=== PATIENT | male | born 1955 | race Hispanic/Latino ===

== ENCOUNTER → 2021-05-28 06:57 | Outpatient (CLI) | payer OTHER, MEDICARE, SELFPAY ==
--- NOTE | 2021-05-28 | DI.US.S_ITS ---
PROCEDURE: US ABDOMEN COMPLETE INDICATIONS: CHRONIC VIRAL HEPATITIS C TECHNIQUE: Real-time scanning was performed of the abdominal and retroperitoneal organs, with image documentation. COMPARISON: None. FINDINGS: Technically difficult examination due to overlying bowel gas and limited scanning windows. Liver: Liver is decreased in size and demonstrates lobulated contour and coarse, heterogeneous echotexture, consistent with cirrhosis. The main portal vein is dilated measuring 14.3 mm in diameter, demonstrating possible hepatofugal flow. Gallbladder: There are a couple of mobile gallstones. Gallbladder wall is mildly thickened measuring 3.2 mm. No pericholecystic fluid collection or sonographic Mendoza sign. Biliary ducts: Intrahepatic bile ducts are non-dilated. Extrahepatic bile duct caliber measures 9.2 mm. Normal is 6-7 mm or less in diameter, or 10 mm or less post-cholecystectomy. Pancreas: Obscured by overlying bowel gas. Spleen: Spleen is enlarged measuring 15.7 cm in length. Kidneys: Kidneys are normal in size and echotexture. Right kidney measures 10.4 cm long; left kidney measures 12.1 cm long. A 6 mm hypodense nodule is seen in the parapelvic area, suspicious for a small parapelvic cyst. Trace right renal pelviectasis. No renal stone. No solid masses. Aorta: Visualized aorta is normal in caliber at less than 3 cm. Iliacs: Proximal common iliac arteries are normal in caliber at less than 2.5 cm. IVC: Intrahepatic inferior vena cava is patent. Miscellaneous: No free abdominal fluid. IMPRESSION: 1. Cirrhotic liver. The main portal vein is dilated and may have reversal of flow. The findings consistent with portal hypertension. 2. Splenomegaly likely secondary to portal hypertension. 3. Cholelithiasis. There is mild gallbladder wall thickening which could be secondary to chronic liver disease, but acute cholecystitis cannot be excluded. Recommend clinical correlation. If clinically indicated, HIDA scan may be helpful. 4. Prominent common bile duct measuring 9 mm. If there is clinical findings to suggest biliary obstruction, MRCP may be obtained for further evaluation. 5. A 6 mm hypodense nodule in the right parapelvic area, most likely a cyst. There is trace right renal pelviectasis. Dictated by: Vishnu Ruvalcaba M.D. on 05/28/2021 at 9:36 Approved by: Vishnu Ruvalcaba M.D. on 05/28/2021 at 9:48
== END ==
PROVIDERS: PCP Internal Medicine; Referring Provider Internal Medicine; Visit Provider Internal Medicine
DX: B18.2 Chronic viral hepatitis C (principal); K74.60 Unspecified cirrhosis of liver; R16.1 Splenomegaly, not elsewhere classified; K80.20 Calculus of gallbladder without cholecystitis without obstruction
CPT/HCPCS: 76700

== ENCOUNTER 2021-09-17 10:12 | Day surgery (SDC) | payer OTHER, MEDICARE, SELFPAY ==
[2021-09-17 10:28] VITALS: BP 134/82; PULSE 76; RESP 16; TEMP 36.8; O2SAT 99; BMI 25.2
[2021-09-17] MEDS: SODIUM CHLORIDE 0.9% 1,000 ML 84 ML IV (10:47)
[2021-09-17 10:56] LABS: COVID19 -Nasal RAPID Negative (Negative)
[2021-09-17 11:21] VITALS: BMI 25.2
--- NOTE | 2021-09-17 11:51 | PM.HP.1 ---
History of Present Illness History of Present Illness Date Patient Seen: 09/17/21 Time Patient Seen: 11:51 Chief complaint: DX COLONOSCOPY & EGD Narrative: I reviewed my note from July 08, 2021 patient is indicated for variceal screening and colon cancer screening in light of an unknown histology history of colon polyps from 16 years ago Patient History Medical History Balanitis xerotica obliterans Depression determined by examination Hepatitis C virus carrier state Family & Social History Social History: household members spouse Tobacco & Substance use: Smoking Status Never smoker alcohol intake former Substance Use Type does not use Meds Home Medications and Allergies Home Medications Medication Instructions Recorded Confirmed Type sofosbuvir 200 mg-velpatasvir 50 200 tab PO DAILY 09/17/21 09/17/21 History mg tablet (Epclusa) Allergies Allergy/AdvReac Type Severity Reaction Status Date / Time No Known Drug Allergies Allergy Verified 09/17/21 10:40 Review of Systems Review of Systems ROS: Yes All systems reviewed with the patient and are negative except as otherwise documented Exam Vital Signs (past 8 hours): - 09/17/21 10:28 Temperature 98.3 F Pulse Rate 76 Respiratory Rate 16 Blood Pressure 134/82 Pulse Oximetry 99 Oxygen Delivery Method Room Air Const General: cooperative and comfortable Orientation: alert HENMT Head: normocephalic Ears: external ears normal Nose: external nose normal Face and sinus: normal facial exam Mouth: oral mucosae normal Eyes General: appearance normal, both eyes and all related structures Neck Neck: normal visual inspection Chest Chest: normal inspection of the chest Resp Effort & Inspection: normal respiratory effort Auscultation: clear to auscultation bilaterally Cardio Rate: regular rate Rhythm: regular rhythm Heart Sounds: no murmurs GI Inspection: normal to inspection Palpation: soft and No tender Auscultation: normal bowel sounds Skin General: no rashes or lesions noted and No jaundice Neuro General: patient alert and moves all extremities Cognition: normal cognition Speech: speech normal Extrem General: no pedal edema Psych Appearance: grossly normal Objective Labs Labs: Laboratory Results - last 24 hr 09/17/21 10:34 SARS-CoV-2 (PCR) Negative Assessment & Plan Assessment & Plan narrative: Hep C cirrhosis indicated for variceal screening. Also indicated for colon cancer screening. EGD and colonoscopy are pursued today. Time Spent With Patient Critical Care time: I spent a total of [] minutes of critical care time on this patient's care today; this time is exclusive of procedural time.
--- NOTE | 2021-09-17 11:53 | PM.PREOP ---
Pre-operative Note COVID-19 COVID-19 status: Negative Result date/Date tested (Pos, Neg/Pending): 09/17/21 Interval Note History & Physical reviewed/Exam performed by Physician: Yes Changes to H&P: No ASA Class (for procedural sedation): II
--- NOTE | 2021-09-17 12:51 | P.OP.EGD&C_ITS ---
Operative Date/Time/Diagnoses Date of procedure: 09/17/21 Time of procedure: 12:51 Pre-op diagnosis: Cirrhosis indicated for variceal screening also indicated for colon cancer screening. Post-op diagnosis: same Procedure & Clinicians Study performed: EGD and colonoscopy Same procedure as scheduled: Yes Indications: Cirrhosis indicated for variceal screening also indicated for colon cancer screening. Surgeon: Brooks Gonzalez Procedure Notes SCOAP/Timeout: Done Procedure in detail: After the risks and benefits were explained, written and verbal informed consent was obtained. The patient was brought into the procedure room and placed into the left lateral decubitus position. Please see nurse certified physical therapist assistant sedation notes. The scope was introduced into the mouth through the bite block and advanced under direct visualization to the 2nd portion of the duodenum. The scope was slowly withdrawn carefully examining the mucosa for any defects or lesions. Retroflexed views were accomplished in the stomach. The stomach was decompressed, the scope was then removed from the patient who tolerated the procedure well. Patient was then turned around a digital rectal examination accomplished no significant pathology appreciated. The scope was introduced into the rectum and advanced to the cecum as identified by the appendiceal orifice and ileocecal valve. The scope was slowly withdrawn to carefully examine the mucosa for any defects or lesions. Retroflexed views were avoided in the rectum multiple direct views were made to through the dentate line for exclusion of pathology. The colon was decompressed scope removed the patient tolerated the procedure well. Bowel prep adequate Adult colonoscope Scope withdrawal time: 7 minutes Sedation minutes: 28 Specimen(s): none sent Complications: none Impression: 1. Duodenum: This was visually normal from the bulb through the 2nd portion. 2. Stomach: Patient had a diffuse portal hypertensive gastropathy. No mass lesions no ulcers no outlet obstruction. In the fundus extending up through the cardia was evidence of enlarged gastric varices. No stigmata of recent bleeding no high-risk features. 3. Esophagus: Patient had evidence of distal esophageal varices. These would be rated at grade 1 to grade 2. No stigmata of recent bleeding no high-risk features. If he 4. Colon: There was some mild diverticulosis in the left colon. He otherwise no significant mucosal abnormality was appreciated throughout. Endoscopic diagnosis 1. Medium sized esophageal varices without stigmata 2. 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 Portal hypertensive gastropathy 4. Sigmoid diverticulosis Post-procedure Recommendations: Colonscopy in 5 years Plan for aftercare: 1. Repeat colonoscopy 5 years considering the remote history of unknown histology colon polyps. 2. Non selective beta-jacinta therapy is initiated today. 3. Short-term GI clinic follow-up to review response. 4. Repeat EGD 1 year. Disposition: PACU
[2021-09-17 12:53] VITALS: BP 111/65; PULSE 76; RESP 18; TEMP 36.4; O2SAT 99
[2021-09-17 13:00] VITALS: BP 99/64; PULSE 78; RESP 13; O2SAT 98
[2021-09-17 13:05] VITALS: BP 109/71; PULSE 70; RESP 11; O2SAT 100
[2021-09-17 13:15] VITALS: BP 131/77; PULSE 62; RESP 12; TEMP 36.4; O2SAT 100
[2021-09-17 13:33] VITALS: BP 129/64; PULSE 62; RESP 16; TEMP 36.3; O2SAT 99
== END 2021-09-17 13:54 | disposition home or self-care (01) ==
PROVIDERS: PCP Internal Medicine; Referring Provider Internal Medicine Gastroenterology; Visit Provider Internal Medicine Gastroenterology
PROC: 0DJ08ZZ Inspection of Upper Intestinal Tract, Via Natural or Artificial Opening Endoscopic (ICD-10-PCS; CPT 43235; principal; 2021-09-17 12:30)
PROC: 0DJD8ZZ Inspection of Lower Intestinal Tract, Via Natural or Artificial Opening Endoscopic (ICD-10-PCS; CPT 45378; 2021-09-17 12:30)
DX: Z12.11 Encounter for screening for malignant neoplasm of colon (principal); K74.69 Other cirrhosis of liver; B18.2 Chronic viral hepatitis C; F10.21 Alcohol dependence, in remission; Z20.822 Contact with and (suspected) exposure to COVID-19; I86.4 Gastric varices; K76.6 Portal hypertension; K31.89 Other diseases of stomach and duodenum; I85.10 Secondary esophageal varices without bleeding; K57.30 Diverticulosis of large intestine without perforation or abscess without bleeding
CPT/HCPCS: 43235; 45378; 87635; J2704

== ENCOUNTER → 2024-06-02 12:07 | Outpatient (CLI) | payer OTHER, SELFPAY ==
--- NOTE | 2024-06-02 12:35 | EKG_ITS ---
[facility] [address] [address] Test Date: 2024-06-02 Pat Name: Conor Moy Department: [facility] Room: Gender: Male Software Administrator: JOHNATHAN : 1955 Requested By: Order Number: [id number] Reading MD: Cruz Chandler MD Measurements Intervals [place] Rate: 54 P: 64 DE: 152 QRS: 83 QRSD: 74 T: 73 QT: 428 QTc: 405 Interpretive Statements Sinus bradycardia Electronically Signed On 06-02-2024 14:32:36 PDT by Cruz Chandler MD
[2024-06-02 13:50] LABS: Add Manual Diff / Slide Review NO; Basophils Absolute Auto 0 /uL (0-100); Basophils Percent Auto 0.9 % (0-2); Eosinophils Absolute Auto 100 /uL (0-450); Eosinophils Percent Auto 2.8 % (2-4); Hematocrit 39.7 % (41-53); Hemoglobin 13.7 g/dL (13.5-17.5); Lymphocytes Absolute Auto 700 /uL (1100-4500); Lymphocytes Percent Auto 30.2 % (25-40); Mean Corpuscular HGB Conc 34.6 % (30-36); Mean Corpuscular Volume 98.2 fL (80-100); Monocytes Absolute Auto 200 /uL (0-900); Monocytes Percent Auto 9.1 % (3-14); Neutrophils Absolute Auto 1400 /uL (1500-7000); Platelet Count 83 X10^3/uL (150-400); Red Blood Cell Count 4.04 X10^6/uL (4.5-5.9); Red Cell Distribution Width 14.2 % (11.6-14.8); White Blood Cell Count 2.4 X10^3/uL (4.5-11.0)
[2024-06-02 13:58] LABS: Hemoglobin A1C% w Est Avg Glu 4.7 % (4.0-6.0)
[2024-06-02 14:20] LABS: Blood Urea Nitrogen 17 mg/dL (9-20); Calcium 9.1 mg/dL (8.4-10.2); Carbon Dioxide 30 mmol/L (22-32); Chloride 105 mmol/L (98-107); Estimated Glomerular Filt Rate > 60 mL/min (>60); Glucose 100 mg/dL (80-110); HEMOLYSIS < 15 (0-50); Sodium 141 mmol/L (137-145)
== END ==
PROVIDERS: PCP Internal Medicine; Referring Provider Orthopaedic Surgery Orthopaedic Surgery of the Spine; Visit Provider Orthopaedic Surgery Orthopaedic Surgery of the Spine
DX: Z01.818 Encounter for other preprocedural examination (principal); Z01.812 Encounter for preprocedural laboratory examination; R73.9 Hyperglycemia, unspecified
CPT/HCPCS: 36415; 80048; 83036; 85025; 93005